=== PATIENT | male | born 1955 | race Caucasian/White ===

== ENCOUNTER 2018-06-27 13:07 | Emergency (ER) | payer BC, OTHER ==
[2018-06-27] MEDS ORDERED: LEVALBUTEROL 1.25 MG/3 ML NEB ONE (14:01)
--- NOTE | 2018-06-27 15:29 | RAD REPORT ---
EXAM DESCRIPTION: RAD - Chest Pa And Lat (2 Views) - 06/27/2018 2:39 pm CLINICAL HISTORY: cough, wheezing Chest pain. COMPARISON: ABDOMEN 1 VIEW KUB dated 04/30/2015; CHEST PA AND LAT 2 VIEW dated 04/30/2015; CHEST SINGL E VIEW dated 06/15/2013; ABDOMEN 1 VIEW KUB dated 09/28/2012 FINDINGS: Mildly prominent interstitial lung markings noted, which can be seen in bronchitis or asth ma. No focal consolidation typical of pneumonia. The heart is normal in size. No displaced fractures.
--- NOTE | 2018-06-27 16:08 | ER ---
Nurse's Notes [facility] Name: Berhane Prado Age: 63 yrs Sex: Male : 1955 Arrival Date: 06/27/2018 Time: 13:16 Bed 6 Private MD: Diagnosis: Acute bronchitis Presentation: 06/27 13:37 Presenting complaint: Patient states: Cough, congestion, sore throat, and body aches, ph denies N/V/D, states, " I just wanted to get checked put because I've had pneumonia in the past.". Transition of care: patient was not received from another setting of care. Onset of symptoms was June 27, 2018. Risk Assessment: Do you want to hurt yourself or someone else? Patient reports no desire to harm self or others. Initial Sepsis Screen: Does the patient meet any 2 criteria? No. Patient's initial sepsis screen is negative. Does the patient have a suspected source of infection? No. Patient's initial sepsis screen is negative. Care prior to arrival: None. 13:37 Method Of Arrival: Ambulatory ph 13:37 Acuity: JOHN 4 ph Triage Assessment: 19:43 General: Appears in no apparent distress. comfortable, Behavior is calm, cooperative, ch appropriate for age. Respiratory: Reports cough that is Airway is patent Respiratory effort is even, unlabored. Historical: - Allergies: 13:40 No Known Allergies; ph - Home Meds: 13:40 valsartan oral oral [Active]; Lipitor Oral [Active]; Allopurinol Oral [Active]; ph - PMHx: 13:40 Hypertension; Hyperlipidemia; Gout; ph - PSHx: 13:40 lung surgery; ph - Immunization history:: Adult Immunizations unknown. - Social history:: Smoking status: Patient/guardian denies using tobacco. - Ebola Screening: : No symptoms or risks identified at this time. Screenin:00 Abuse screen: Denies threats or abuse. Denies injuries from another. Nutritional ch screening: No deficits noted. Tuberculosis screening: No symptoms or risk factors identified. Fall Risk None identified. Assessment: 16:00 Pain: Denies pain. Neuro: No deficits noted. Cardiovascular: Heart tones S1 S2 ch Capillary refill < 3 seconds in bilateral fingers toes Clubbing of nail beds is absent Patient's skin is warm and dry. 16:00 Respiratory: Reports cough that is productive, Airway is patent Respiratory effort is ch even, unlabored, Breath sounds with wheezes bilaterally. GI: No signs and/or symptoms were reported involving the gastrointestinal system. Abdomen is flat. : No signs and/or symptoms were reported regarding the genitourinary system. EENT: Nares with drainage noted Reports nasal congestion nasal discharge. Derm: Skin is intact, Skin is pink, warm \\T\\ dry. Musculoskeletal: No signs and/or symptoms reported regarding the musculoskeletal system. Vital Signs: 13:38 BP 131 / 105; Pulse 90; Resp 20; Temp 98.4; Pulse Ox 98% on R/A; Weight 88.9 kg; Height ph 5 ft. 5 in. (165.10 cm); 14:30 BP 125 / 89; Pulse 94; Resp 19; Pulse Ox 96% on R/A; dh3 15:30 BP 131 / 94; Pulse 90; Resp 18; Pulse Ox 100% on R/A; dh3 13:38 Body Mass Index 32.62 (88.90 kg, 165.10 cm) ph ED Course: 13:16 Patient arrived in ED. mr 13:29 Zach Dick PA is PHCP. jmm 13:29 Burton Blake MD is Attending Physician. jm 13:38 Triage completed. ph 13:40 Poonam Moeller, CHRISTINA is Primary Nurse. ch 13:40 Arm band placed on Patient placed in an exam room. ph 14:37 Chest Pa And Lat (2 Views) XRAY In Process Unspecified. EDMS 16:00 No apparent distress. Resting quietly. ch 16:00 Patient has correct armband on for positive identification. Bed in low position. Call light in reach. Side rails up X 1. Pulse ox on. NIBP on. 16:00 No provider procedures requiring assistance completed. Patient did not have IV access ch during this emergency room visit. Administered Medications: 14:00 Drug: Xopenex (3) 1.25 mg Route: Inhalation; 14:57 Follow up: Response: No adverse reaction; Other; Other, pt states he feels a little ch better. 16:00 Drug: Dexamethasone 10 mg Route: IM; Site: right ventrogluteal; 16:20 Follow up: Response: No adverse reaction ch Outcome: 16:00 Discharged to home ambulatory, with family. 16:00 Condition: improved 16:00 Discharge instructions given to patient, family, Instructed on discharge instructions, follow up and referral plans. medication usage, Demonstrated understanding of instructions, follow-up care, medications, Prescriptions given X 2. 16:07 Discharge ordered by MD. marshall 17:00 Patient left the ED. Signatures: Dispatcher [employer] EDPoonam Moon RN RN Zach Dick PA PA jmm Rivera, Mary mr Hall, Patricia RN RN Flower Bustillos [facility] Corrections: (The following items were deleted from the chart) 15:59 15:57 BP 131 / 94; Pulse 90bpm; Resp 18bpm; Pulse Ox 100% RA; 3 3
--- NOTE | 2018-06-27 16:08 | EDPHYS ---
Physician Documentation [facility] Name: Berhane Prado Age: 63 yrs Sex: Male : 1955 Arrival Date: 06/27/2018 Time: 13:16 Bed 6 Private MD: ED Physician Burton Blake HPI: 06/27 13:37 This 63 yrs old Male presents to ER via Ambulatory with complaints of jmm Congestion, Cough. 13:37 The patient or guardian reports cough, described as moderate. Onset: The jmm symptoms/episode began/occurred gradually, 1 week(s) ago. Associated signs and symptoms: Pertinent positives:. This is a 63 year old male with a history of htn, hlp that presents to the ED with complaints of cough, wheezing, congestion, sore throat beginning approx 1 week ago. . Historical: - Allergies: 13:40 No Known Allergies; ph - Home Meds: 13:40 valsartan oral oral [Active]; Lipitor Oral [Active]; Allopurinol Oral [Active]; ph - PMHx: 13:40 Hypertension; Hyperlipidemia; Gout; ph - PSHx: 13:40 lung surgery; ph - Immunization history:: Adult Immunizations unknown. - Social history:: Smoking status: Patient/guardian denies using tobacco. - Ebola Screening: : No symptoms or risks identified at this time. ROS: 13:40 Constitutional: Positive for body aches, chills. jmm 13:40 ENT: Positive for sinus congestion, sore throat. 13:40 Respiratory: Positive for cough, wheezing. 13:40 All other systems are negative. Exam: 13:40 Constitutional: This is a well developed, well nourished patient who is awake, alert, jmm and in no acute distress. Head/Face: atraumatic. Eyes: EOMI, no conjunctival erythema appreciated ENT: Moist Mucus Membranes Neck: Trachea midline, Supple Chest/axilla: Normal chest wall appearance and motion. 13:40 Cardiovascular: Rate: normal, Rhythm: regular. 13:40 Respiratory: the patient does not display signs of respiratory distress, Respirations: normal, Breath sounds: wheezing: that is mild, is scattered. 13:40 Abdomen/GI: Inspection: abdomen appears normal, Bowel sounds: normal, Palpation: abdomen is soft and non-tender, in all quadrants. 13:40 Back: ROM is normal. 13:40 Musculoskeletal/extremity: ROM: intact in all extremities. 13:40 Skin: Appearance: Color: normal in color. 13:40 Neuro: Orientation: is normal, Mentation: is normal, Memory: is normal. 13:40 Psych: Behavior/mood is pleasant, cooperative. Vital Signs: 13:38 BP 131 / 105; Pulse 90; Resp 20; Temp 98.4; Pulse Ox 98% on R/A; Weight 88.9 kg; Height ph 5 ft. 5 in. (165.10 cm); 14:30 BP 125 / 89; Pulse 94; Resp 19; Pulse Ox 96% on R/A; dh3 15:30 BP 131 / 94; Pulse 90; Resp 18; Pulse Ox 100% on R/A; dh3 13:38 Body Mass Index 32.62 (88.90 kg, 165.10 cm) ph MDM: 13:[address] [facility] 16:06 Data reviewed: vital signs, nurses notes. Counseling: I had a detailed discussion with [facility] the patient and/or guardian regarding: the historical points, exam findings, and any diagnostic results supporting the discharge/admit diagnosis, radiology results, the need for outpatient follow up, to return to the emergency department if symptoms worsen or persist or if there are any questions or concerns that arise at home. ED course: Patient is alert and non toxic in appearance in the ED. No signs of resp distress is apprecaited. Patient advised to follow up with pcp for reevaluation. Patient is otherwise given strict return precautions. Patient understood and agrees with the plan of care. . 06/27 13:42 Order name: Flu; Complete Time: 14:52 [facility] 06/27 13:42 Order name: Chest Pa And Lat (2 Views) XRAY; Complete Time: 15:32 [facility] Administered Medications: 14:00 Drug: Xopenex (3) 1.25 mg Route: Inhalation; ch 14:57 Follow up: Response: No adverse reaction; Other; Other, pt states he feels a little ch better. 16:00 Drug: Dexamethasone 10 mg Route: IM; Site: right ventrogluteal; ch 16:20 Follow up: Response: No adverse reaction ch Disposition: 06/28 09:47 Co-signature as Attending Physician, Burton Blake MD I agree with the assessment and warren plan of care. Disposition: 06/27/18 16:07 Discharged to Home. Impression: Acute bronchitis. - Condition is Stable. - Discharge Instructions: Acute Bronchitis, Adult. - Prescriptions for Zithromax Z- Dominguez 250 mg Oral Tablet - take 1 tablet by ORAL route as directed for 5 days Day 1 - take two (2) tablets one time. Day 2, 3, 4 , 5 take one (1) tablet once daily.; 6 tablet. Albuterol Sulfate 90 mcg/actuation - inhale 1-2 puff by INHALATION route every 4-6 hours; 1 Inhaler. - Medication Reconciliation Form, Thank You Letter, Antibiotic Education, Prescription Opioid Use form. - Follow up: Private Physician; When: 2 - 3 days; Reason: Recheck today's complaints, Continuance of care, Re-evaluation by your physician. Signatures: Dispatcher [employer] Poonam Bedoya, CHRISTINA RN Burton Alexandre MD MD cha Mickail, Joel, PA PA jmm Hall, Patricia, RN RN ph Corrections: (The following items were deleted from the chart) 06/27 17:00 16:07 06/27/2018 16:07 Discharged to Home. Impression: Acute bronchitis. Condition is ch Stable. Forms are Medication Reconciliation Form, Thank You Letter, Antibiotic Education, Prescription Opioid Use. Follow up: Private Physician; When: 2 - 3 days; Reason: Recheck today's complaints, Continuance of care, Re-evaluation by your physician. joanna
[2018-06-27] MEDS ORDERED: DEXAMETHASONE 4 MG/ML VIAL ONE ×2 (16:20→16:24)
[2018-06-27 17:10] VITALS: TEMP 98.4
[2018-06-27 17:12] VITALS: BP 131/94; O2SAT 100
== END 2018-06-27 17:00 | disposition home or self-care (01) ==
LOC: ER 13:07
DX: J20.9 Acute bronchitis, unspecified (principal); I10 Essential (primary) hypertension; E78.5 Hyperlipidemia, unspecified
CPT/HCPCS: 71046; 87804; 96372; 99284

== ENCOUNTER 2019-04-16 07:35 | Emergency (ER) | payer BC ==
--- NOTE | 2019-04-16 08:29 | ER ---
Nurse's Notes [facility] Name: Berhane Prado Age: 63 yrs Sex: Male : 1955 Arrival Date: 04/16/2019 Time: 07:37 Bed X-Ray Private MD: Gustavo Wilson T Diagnosis: Bronchitis, not specified as acute or chronic;Acute upper respiratory infection, unspecified Presentation: 04/16 07:43 Presenting complaint: Patient states: cough and congestion that began 2 days ago. ss Unknown fever. Transition of care: patient was not received from another setting of care. Onset of symptoms was April 14, 2019. Risk Assessment: Do you want to hurt yourself or someone else? Patient reports no desire to harm self or others. Initial Sepsis Screen: Does the patient meet any 2 criteria? No. Patient's initial sepsis screen is negative. Does the patient have a suspected source of infection? Yes: Productive cough/pneumonia. Care prior to arrival: None. 07:43 Method Of Arrival: Ambulatory ss 07:43 Acuity: JOHN 4 ss Triage Assessment: 08:30 General: Appears in no apparent distress. uncomfortable, Behavior is calm, cooperative. ae4 Historical: - Allergies: 07:46 No Known Allergies; ss - Home Meds: 07:46 "supposed to be taking BP and cholesterol medications" [Active]; ss - PMHx: 07:46 Gout; Hyperlipidemia; Hypertension; ss - PSHx: 07:46 lung surgery; ss - Immunization history:: Flu vaccine is not up to date. - Social history:: Smoking status: Patient/guardian denies using tobacco. - Ebola Screening: : Patient denies exposure to infectious person Patient denies travel to an Ebola-affected area in the 21 days before illness onset. - Family history:: not pertinent. Screenin:32 Abuse screen: Denies threats or abuse. Nutritional screening: No deficits noted. ae4 Tuberculosis screening: No symptoms or risk factors identified. Fall Risk None identified. Assessment: 08:30 General: Appears in no apparent distress. uncomfortable, Behavior is calm, cooperative. ae4 Pain: Complains of pain in Patient reports body aches. and pain to chest with cough. Neuro: Level of Consciousness is awake, alert, obeys commands, Oriented to person, place, time, situation, Appropriate for age. Cardiovascular: Patient's skin is warm and dry. Respiratory: Airway is patent Respiratory effort is even, unlabored. 08:30 Respiratory: Reports shortness of breath cough that is non-productive, dry, pain with ae4 cough Breath sounds are diminished bilaterally. Breath sounds with wheezes bilaterally. GI: No signs and/or symptoms were reported involving the gastrointestinal system. : No signs and/or symptoms were reported regarding the genitourinary system. EENT: No signs and/or symptoms were reported regarding the EENT system. Derm: Skin is pale. Musculoskeletal: No signs and/or symptoms reported regarding the musculoskeletal system. 09:10 Reassessment: Patient appears in no apparent distress at this time. No changes from ae4 previously documented assessment. Vital Signs: 07:46 BP 161 / 109; Pulse 88; Resp 16; Temp 98.3(TE); Pulse Ox 97% on R/A; Weight 87.09 kg; ss Height 5 ft. 5 in. (165.10 cm); Pain 4/10; 09:15 BP 160 / 94; Pulse 82; Resp 18; Pulse Ox 97% on R/A; ae4 07:46 Body Mass Index 31.95 (87.09 kg, 165.10 cm) ED Course: 07:37 Patient arrived in ED. ag5 07:37 Gustavo Wilson MD is Private Physician. ag5 07:43 Burton Blake MD is Attending Physician. warren 07:44 Triage completed. ss 07:46 Arm band placed on left wrist. ss 07:50 Russell Mg, CHRISTINA is Primary Nurse. ae4 08:17 Chest Pa And Lat (2 Views) XRAY In Process Unspecified. EDMS 08:28 Gustavo Wilson MD is Referral Physician. warren 08:28 Harman Tate MD is Referral Physician. warren 08:30 Bed in low position. Call light in reach. Side rails up X 1. Pulse ox on. NIBP on. ae4 08:30 No provider procedures requiring assistance completed. Patient did not have IV access ae4 during this emergency room visit. Administered Medications: 08:30 Drug: Xopenex 2.5 mg Route: Inhalation; ae4 09:36 Follow up: Response: Other; SOB decreased. ae4 08:30 Drug: AtroVENT Aerosol 0.5 mg Route: Inhalation; ae4 09:35 Follow up: Response: Other; SOB decreased. ae4 09:15 Drug: Rocephin (cefTRIAXone) 1 grams Route: IM; Site: left gluteus; rb1 09:35 Follow up: Response: No adverse reaction ae4 09:15 Drug: Augmentin 875 mg Route: PO; rb1 09:35 Follow up: Response: Medication administered at discharge. ae4 Outcome: 08:28 Discharge ordered by MD. kelley 08:30 Discharged to home ambulatory. ae4 08:30 Condition: stable 08:30 Discharge instructions given to patient, significant other, Instructed on discharge instructions, follow up and referral plans. Demonstrated understanding of instructions, Prescriptions given X 2. 09:30 Patient left the ED. ae4 Signatures: Dispatcher [employer] EDMS Burton Blake MD MD cha Smirch, Shelby, RN RN Lelsy Simental RN RN rb1 Alina Gottlieb Russell Denise RN RN ae4
--- NOTE | 2019-04-16 08:29 | EDPHYS ---
Physician Documentation [facility] Name: Berhane Prado Age: 63 yrs Sex: Male : 1955 Arrival Date: 04/16/2019 Time: 07:37 Bed X-Ray Private MD: Gustavo Wilson T ED Physician Burton Blake HPI: 04/16 08:10 This 63 yrs old Male presents to ER via Ambulatory with complaints of Flu warren Symptoms. 08:10 The patient or guardian reports airway noise, cough. Onset: The symptoms/episode warren began/occurred 3 day(s) ago. Modifying factors: The symptoms are alleviated by nothing. the symptoms are aggravated by cold environment. Severity of symptoms: At their worst the symptoms were mild, moderate, in the emergency department the symptoms have improved, mildly. Associated signs and symptoms: The patient has no apparent associated signs or symptoms. Modifying factors: The symptoms are alleviated by nothing, the symptoms are aggravated by nothing. Severity of symptoms: At their worst the symptoms were mild moderate in the emergency department the symptoms are unchanged. Historical: - Allergies: 07:46 No Known Allergies; ss - Home Meds: 07:46 "supposed to be taking BP and cholesterol medications" [Active]; ss - PMHx: 07:46 Gout; Hyperlipidemia; Hypertension; ss - PSHx: 07:46 lung surgery; ss - Immunization history:: Flu vaccine is not up to date. - Social history:: Smoking status: Patient/guardian denies using tobacco. - Ebola Screening: : Patient denies exposure to infectious person Patient denies travel to an Ebola-affected area in the 21 days before illness onset. - Family history:: not pertinent. ROS: 08:10 Constitutional: Negative for fever, chills, and weight loss, Eyes: Negative for injury, warren pain, redness, and discharge, ENT: Negative for injury, pain, and discharge, Neck: Negative for injury, pain, and swelling, Cardiovascular: Negative for chest pain, palpitations, and edema, Abdomen/GI: Negative for abdominal pain, nausea, vomiting, diarrhea, and constipation, Back: Negative for injury and pain, : Negative for injury, bleeding, discharge, and swelling, MS/Extremity: Negative for injury and deformity, Skin: Negative for injury, rash, and discoloration, Neuro: Negative for headache, weakness, numbness, tingling, and seizure, Psych: Negative for depression, anxiety, suicide ideation, homicidal ideation, and hallucinations, Allergy/Immunology: Negative for hives, rash, and allergies, Endocrine: Negative for neck swelling, polydipsia, polyuria, polyphagia, and marked weight changes, Hematologic/Lymphatic: Negative for swollen nodes, abnormal bleeding, and unusual bruising. 08:10 Respiratory: Positive for cough, "sounds productive". Exam: 08:10 Constitutional: This is a well developed, well nourished patient who is awake, alert, warren and in no acute distress. Head/Face: Normocephalic, atraumatic. Eyes: Pupils equal round and reactive to light, extra-ocular motions intact. Lids and lashes normal. Conjunctiva and sclera are non-icteric and not injected. Cornea within normal limits. Periorbital areas with no swelling, redness, or edema. ENT: Nares patent. No nasal discharge, no septal abnormalities noted. Tympanic membranes are normal and external auditory canals are clear. Oropharynx with no redness, swelling, or masses, exudates, or evidence of obstruction, uvula midline. Mucous membranes moist. Neck: Trachea midline, no thyromegaly or masses palpated, and no cervical lymphadenopathy. Supple, full range of motion without nuchal rigidity, or vertebral point tenderness. No Meningismus. Chest/axilla: Normal chest wall appearance and motion. Nontender with no deformity. No lesions are appreciated. Cardiovascular: Regular rate and rhythm with a normal S1 and S2. No gallops, murmurs, or rubs. Normal PMI, no JVD. No pulse deficits. Abdomen/GI: Soft, non-tender, with normal bowel sounds. No distension or tympany. No guarding or rebound. No evidence of tenderness throughout. Back: No spinal tenderness. No costovertebral tenderness. Full range of motion. Male : Normal genitalia with no discharge or lesions. Skin: Warm, dry with normal turgor. Normal color with no rashes, no lesions, and no evidence of cellulitis. MS/ Extremity: Pulses equal, no cyanosis. Neurovascular intact. Full, normal range of motion. Neuro: Awake and alert, GCS 15, oriented to person, place, time, and situation. Cranial nerves II-XII grossly intact. Motor strength 5/5 in all extremities. Sensory grossly intact. Cerebellar exam normal. Normal gait. Psych: Awake, alert, with orientation to person, place and time. Behavior, mood, and affect are within normal limits. 08:10 Respiratory: the patient does not display signs of respiratory distress, Respirations: normal, Breath sounds: bronchial sounds, rhonchi, that are mild. Vital Signs: 07:46 BP 161 / 109; Pulse 88; Resp 16; Temp 98.3(TE); Pulse Ox 97% on R/A; Weight 87.09 kg; ss Height 5 ft. 5 in. (165.10 cm); Pain 4/10; 09:15 BP 160 / 94; Pulse 82; Resp 18; Pulse Ox 97% on R/A; ae4 07:46 Body Mass Index 31.95 (87.09 kg, 165.10 cm) ss MDM: 07:48 Patient medically screened. [facility] 08:13 Data reviewed: vital signs, nurses notes, lab test result(s), radiologic studies. [facility] 04/16 07:50 Order name: Flu ae 04/16 07:51 Order name: Influenza Screen (A ; Complete Time: 09:21 EDAK 04/16 08:07 Order name: Chest Pa And Lat (2 Views) XRAY [facility] 04/16 08:18 Order name: INCENTIVE SPIROMETRY warren Administered Medications: 08:30 Drug: Xopenex 2.5 mg Route: Inhalation; ae4 09:36 Follow up: Response: Other; SOB decreased. ae4 08:30 Drug: AtroVENT Aerosol 0.5 mg Route: Inhalation; ae4 09:35 Follow up: Response: Other; SOB decreased. ae4 09:15 Drug: Rocephin (cefTRIAXone) 1 grams Route: IM; Site: left gluteus; rb1 09:35 Follow up: Response: No adverse reaction ae4 09:15 Drug: Augmentin 875 mg Route: PO; rb1 09:35 Follow up: Response: Medication administered at discharge. ae4 Disposition: 04/16/19 08:28 Discharged to Home. Impression: Bronchitis, not specified as acute or chronic, Acute upper respiratory infection, unspecified. - Condition is Fair. - Discharge Instructions: Acute Bronchitis, Adult, Hypertension, Upper Respiratory Infection, Adult, Cool Mist Vaporizer, Hypertension, [id number], Cough, Adult. - Prescriptions for Augmentin 875- 125 mg Oral Tablet - take 1 tablet by ORAL route every 12 hours for 10 days; 20 tablet. Albuterol Sulfate 90 mcg/actuation - inhale 1-2 puff by INHALATION route every 4-6 hours; 1 Inhaler. - Medication Reconciliation Form, Thank You Letter, Antibiotic Education, Prescription Opioid Use form. - Follow up: Gustavo Wilson; When: 2 - 3 days; Reason: Recheck today's complaints, Continuance of care, Re-evaluation by your physician. Follow up: Harman Tate; When: 2 - 3 days; Reason: Recheck today's complaints, Re-evaluation by your physician. - Problem is new. - Symptoms have improved. Signatures: Dispatcher [employer] EDMS Burton Blake MD MD cha Smirch, Shelby, RN RN Lesly Simental, CHRISTINA RN Russell William RN RN ae4 Corrections: (The following items were deleted from the chart) 09:30 08:28 04/16/2019 08:28 Discharged to Home. Impression: Bronchitis, not specified as ae4 acute or chronic; Acute upper respiratory infection, unspecified. Condition is Fair. Discharge Instructions: Acute Bronchitis, Adult, Upper Respiratory Infection, Adult, Cool Mist Vaporizer, Cough, Adult, Hypertension, Hypertension, [id number]. Prescriptions for Augmentin 875-125 mg Oral Tablet - take 1 tablet by ORAL route every 12 hours for 10 days; 20 tablet, Albuterol Sulfate 90 mcg/actuation - inhale 1-2 puff by INHALATION route every 4-6 hours; 1 Inhaler. and Forms are Medication Reconciliation Form, Thank You Letter, Antibiotic Education, Prescription Opioid Use. Follow up: Gustavo Wilson; When: 2 - 3 days; Reason: Recheck today's complaints, Continuance of care, Re-evaluation by your physician. Follow up: Harman Tate; When: 2 - 3 days; Reason: Recheck today's complaints, Re-evaluation by your physician. Problem is new. Symptoms have improved. warren
[2019-04-16] MEDS ORDERED: LEVALBUTEROL 1.25 MG/3 ML NEB ONE (08:35)
[2019-04-16] MEDS ORDERED: AMOX/K CLAV 875 MG TAB ONE (08:35)
[2019-04-16] MEDS ORDERED: IPRATROPIUM BROM 0.5MG/2.5ML ONE (08:35)
[2019-04-16] MEDS ORDERED: CEFTRIAXONE 1000 MG/VIAL ONE (08:35)
[2019-04-16] MEDS ORDERED: WATER FOR INJ,STERILE 10 ML ONE (08:36)
[2019-04-16 09:34] VITALS: BP 161/109; TEMP 98.3; O2SAT 97
--- NOTE | 2019-04-16 10:11 | RAD REPORT ---
EXAM DESCRIPTION: RAD - Chest Pa And Lat (2 Views) - 04/16/2019 8:21 am CLINICAL HISTORY: Cough;Congestion COMPARISON: June 27 TECHNIQUE: PA and lateral views of the chest were obtained. FINDINGS: The lungs are clear of acute infiltrate. No failure, volume overload or mass lesion. Lung parenchyma not significantly different from comparison. Heart size is normal and central vasculatur e is within normal limits. No pleural effusion or pneumothorax seen. No acute bony finding noted. No aortic abnormality. IMPRESSION: No acute cardiopulmonary process. No significant change comparison.
== END 2019-04-16 09:30 | disposition home or self-care (01) ==
LOC: ER 07:35
DX: J40 Bronchitis, not specified as acute or chronic (principal); I10 Essential (primary) hypertension; E78.00 Pure hypercholesterolemia, unspecified
CPT/HCPCS: 71046; 87804; 96372; 99284

== ENCOUNTER 2021-04-25 12:57 | Emergency (ER) | payer BC ==
--- OUTSIDE RECORDS SUMMARY | 2021-04-25 13:00 | XMS REPORT | Continuity of Care Document ---
:1955 Author Organization [facility] t Address [address] [place] [address] Care Team Providers Name Role Phone BILLYCHIDIADELFO Primary Care Physician Unavailable LUIS F Attending Clinician Unavailable Provider, [facility] Attending Clinician Unavailable Luis F GARCIA Attending Clinician Doctor Unassigned, Name Attending Clinician Unavailable Payers Payer Name Policy Type Policy Number Effective Date Expiration Date S ource Problems Condition Condition Condition Status Onset Resolution Last Treating Co mments Source Name Details Category Date Date Treatment Clinician Date Obesity Obesity Disease Active 2017- Univers (BMI (BMI 6-04 ity of 30-39.9) 30-39.9) 00:00: [place] 00 [facility] Allergies, Adverse Reactions, Alerts Allergy Allergy Status Severity Reaction(s) Onset Inactive Treating Comm ents Source Name Type Date Date Clinician NO KNOWN Drug Active Univers ALLERGIE Class [facility]y of [facility] Social History Social Habit Start Date Stop Date Quantity Comments Source Exposure to Yes [facility] SARS-CoV-2 (event) Medica l Branch Tobacco use and 2020-12-13 2020-12-13 Never used [facility] exposure 00:00:00 00:00:00 [facility] Sex Ass[birth year] [facility] 00:00:00 00:00:00 [facility] Smoking Status Start Date Stop Date Source Never smoker [facility] Medications Ordered Filled Start Stop Current Ordering Indication Dosage Frequency Signature Comments Components Source Medication Medication Date Date Medication? Clinician (SIG) Name Name benzonatate 2020-04 Yes [id number] 200mg Take 2 [facility] 100 mg 2-24 capsules [place] Branch daily as needed for Cough. bromphenira 2020-04 Yes [id number] 5mL Take 5 mL Univers mine-pseudo 2-24 by mouth 4 it [place] of ephedrine-D [place] ([place] 00 times Medical DM) 2-30-10 daily as Bran ch mg/5 mL needed for syrup Congestion /Allergies . azelastine 2020-04 Yes [id number] 1{spray Use 1 Univers 137 mcg 2-24 } [place] in ity of (0.1 %) 00:00: each [place] nasal spray 00 nostril 2 Med ical (two) Branch times daily. Use in each nostril as directed fluticasone 2020-04 Yes [id number] 1{spray Use 1 Univers propionate 2-24 } [place] in ity o f 50 00:00: each [place] mcg/actuati 00 nostril Medic al on nasal daily. Branch spray cetirizine 2020-04 Yes [id number] 10mg Take 1 Univers (ZYRTEC) 10 2-24 tablet by ity of mg tablet 00:00: mouth [place] 00 daily. Medical Branch benzonatate 2020-04 Yes [id number] 200mg Take 2 [facility] 100 mg 2-24 capsules [place] of capsule [place] (two[place] times Branch daily as needed for Cough. bromphenira 2020-04 Yes [id number] 5mL Take 5 mL [facility] mine-pseudo 2-24 by mouth 4 it y of ephedrine-D 00:00[place] ([place] 00 times Medical DM) 2-30-10 daily as Bran ch mg/5 mL needed for syrup Congestion /Allergies . azelastine 2020-04 Yes [id number] 1{spray Use 1 Univers 137 mcg 2-24 } [place] in ity of (0.1 %) 00:00: each [place] nasal spray 00 nostril 2 Med ical (two) Branch times daily. Use in each nostril as directed fluticasone 2020-04 Yes [id number] 1{spray Use 1 Univers propionate 2-24 } [place] in ity o f 50 00:00: each [place] mcg/actuati 00 nostril Medic al on nasal daily. Branch spray cetirizine 2020-04 Yes [id number] 10mg Take 1 Univers (ZYRTEC) 10 2-24 tablet by ity of mg tablet 00:00: mouth [place] 00 daily. Medical Branch benzonatate 2020-04 Yes [id number] 200mg Take 2 [facility] 100 mg 2-24 capsules [place] of capsule 00:00[place] (two[place] times Branch daily as needed for Cough. bromphenira 2020-04 Yes [id number] 5mL Take 5 mL [facility] mine-pseudo 2-24 by mouth 4 it y of ephedrine-D 00:00: (four[place] (BROMF[place] 00 times Medical DM) 2-30-10 daily as Bran ch mg/5 mL needed for syrup Congestion /Allergies . azelastine 2020-04 Yes [id number] 1{spray Use 1 Univers 137 mcg 2-24 } [place] in ity of (0.1 %) 00:00: each [place] nasal spray 00 nostril 2 Med ical (two) Branch times daily. Use in each nostril as directed fluticasone 2020-04 Yes [id number] 1{spray Use 1 [facility] propionate 2-24 } [place] in ity o f 50 00:00: each [place] mcg/actuati 00 nostril Medic al on nasal daily. Branch spray cetirizine 2020-04 Yes [id number] 10mg Take 1 Univers (ZYRTEC) 10 2-24 tablet by ity of mg tablet 00:00: mouth [place] 00 daily. Medical Branch mupirocin 2 2020-0 Yes [id number] Apply to Univers % ointment 4-13 area(s) 3 ity of 00:00: (three) [place] 00 times Medical daily. Branch mupirocin 2 2020-0 Yes [id number] Apply to Univers % ointment 4-13 area(s) 3 ity of 00:00: (three) [place] 00 times Medical daily. Branch mupirocin 2 2019-0 Yes [id number] Apply to Univers % ointment 4-13 area(s) 3 ity of 00:00: (three) [place] 00 times Medical daily. Branch traMADOL 2017-0 Yes 50mg Take 1 Univers (ULTRAM) 50 6-04 tablet by ity of mg tablet 00:00: mouth [place] 00 every 6 Medical (six) Branch hours as needed for Pain (scale 4-6). traMADOL Yes 50mg Take 1 Univers (ULTRAM) 50 6-04 tablet by ity of mg tablet 00:00: mouth [place] 00 every 6 Medical (six) Branch hours as needed for Pain (scale 4-6). traMADOL Yes 50mg Take 1 Univers (ULTRAM) 50 6-04 tablet by ity of mg tablet 00:00: mouth [place] 00 every 6 Medical (six) Branch hours as needed for Pain (scale 4-6). ketorolac 2015-04 Yes 10mg Take 1 Univer s (TORADOL) 0-31 tablet by ity o f 10 mg 00:00: mouth [place] tablet 00 every 6 Medical (six) Branch hours as needed for Pain (scale 4-6). tamsulosin 2015-04 Yes .4mg Take 1 Unive rs (FLOMAX) 0-31 capsule by ity o f 0.4 mg 24 00:00: mouth [place] capsule 00 bedtime. Medic al Branch ondansetron 2015-04 Yes 4mg Take 1 Univ ers (ZOFRAN, 0-31 tablet by ity of HYDROCHLORI 00:00: mouth [place],) 4 mg 00 every 8 Medical tablet (eight) Branch hours. ketorolac 2015-04 Yes 10mg Take 1 Univer s (TORADOL) 0-31 tablet by ity o f 10 mg 00:00: mouth [place] tablet 00 every 6 Medical (six) Branch hours as needed for Pain (scale 4-6). tamsulosin 2015-04 Yes .4mg Take 1 Unive rs (FLOMAX) 0-31 capsule by ity o f 0.4 mg 24 00:00: mouth [place] capsule 00 bedtime. Medic al Branch ondansetron 2015-04 Yes 4mg Take 1 Univ ers (ZOFRAN, 0-31 tablet by ity of HYDROCHLORI 00:00: mouth [place],) 4 mg 00 every 8 Medical tablet (eight) Branch hours. ketorolac 2015-04 Yes 10mg Take 1 Univer s (TORADOL) 0-31 tablet by ity o f 10 mg 00:00: mouth [place] tablet 00 every 6 Medical (six) Branch hours as needed for Pain (scale 4-6). tamsulosin 2015-04 Yes .4mg Take 1 Unive rs (FLOMAX) 0-31 capsule by ity o f 0.4 mg 24 00:00: mouth [place] capsule 00 bedtime. Medic al Branch ondansetron 2015-04 Yes 4mg Take 1 Univ ers (ZOFRAN, 0-31 tablet by ity of HYDROCHLORI 00:00: mouth [place],) 4 mg 00 every 8 Medical tablet (eight) Branch hours. cyclobenzap 2015-04 Yes 10mg Take 1 Univ ers rine 0-23 tablet by ity of (FLEXERIL) 00:00: mouth 3 [place] 10 mg 00 (three) Medical tablet times Branch daily. ibuprofen 2015-04 Yes 600mg Take 1 Unive rs (MOTRIN) 0-23 tablet by ity of 600 mg 00:00: mouth [place] tablet 00 every 6 Medical (six) Branch hours as needed for Pain (scale 4-6). cyclobenzap 2015-04 Yes 10mg Take 1 Univ ers rine 0-23 tablet by ity of (FLEXERIL) 00:00: mouth [place] 10 mg 00 (three) Medical tablet times Branch daily. ibuprofen 2015-04 Yes 600mg Take 1 Unive rs (MOTRIN) 0-23 tablet by ity of 600 mg 00:00: mouth [place] tablet 00 every 6 Medical (six) Branch hours as needed for Pain (scale 4-6). cyclobenzap 2015-04 Yes 10mg Take 1 Univ ers rine 0-23 tablet by ity of (FLEXERIL) 00:00: mouth [place] 10 mg 00 (three) Medical tablet times Branch daily. ibuprofen 2015-04 Yes 600mg Take 1 Unive rs (MOTRIN) 0-23 tablet by ity of 600 mg 00:00: mouth [place] tablet 00 every 6 Medical (six) Branch hours as needed for Pain (scale 4-6). Procedures Procedure Date / Time Performed Performing Clinician [facility] ASSIGNMENT OF BENEFITS 2021-04-15 22:34:31 Doctor Unassigned, No University [facility] Name Medical Branch Encounters Start End Encounter Admission Attending Care Care Encounter Source Date/Time Date/Time Type Type Clinicians Facility Department ID 2021-04-15 2021-04-15 [id number] Univers 17:00:00 17:00:00 JEROD [id number] ity [facility] 2021-04-15 2021-04-15 Urgent Provider, [facility] [id number] Univers 17:00:00 17:00:00 Care Jerod Patterson [facility] [id number] ity of [place] [id number] Reji as ALEXANDRO?BLEA [phone] [address] MEDICAL OFFICE BUILDING 2021-04-15 2021-04-15 [facility] [id number] Univers 17:00:00 16:55:[facility] 2021-04-15 2021-04-15 Orders Doctor SANDERS [id number] Univers 00:00:00 00:00:00 Only Unassigned, DEVORA [id number] ity of [place] [facility] [id number] Reji as [phone] [address] 2021-04-12 2021-04-12 [facility] [id number] Univers 14:00:00 14:10:43 [facility] [place] [facility] 2021-04-12 2021-04-12 [facility] [id number] Univers 00:00:00 00:00:00 [facility] [id number] it y of [place] [id number] Reji as ALEXANDRO?BLEA [phone] [address] MEDICAL OFFICE BUILDING Results This patient has no known results.
[2021-04-25] MEDS ORDERED: ONDANSETRON 4 MG/2 ML VIAL ONE (14:45)
[2021-04-25 14:53] LABS: Absolute Lymphocytes (CBC) 0.7 K/uL (0.7-4.9); Lymphocytes % 14.1 % (15.3-44.8); MPV 7.4 fL (7.6-11.3); RBC Red Blood Cell Count 5.13 M/uL (4.33-5.43)
[2021-04-25 15:21] LABS: Albumin 3.4 g/dL (3.4-5.0); Bilirubin Direct 0.4 mg/dL (0-0.2); Bilirubin Total 1.2 mg/dL (0.2-1.0); Protein, Total 7.9 g/dL (6.4-8.2)
[2021-04-25] MEDS ORDERED: FAMOTIDINE 20 MG/2 ML VIAL IV ONE (16:39)
[2021-04-25] MEDS ORDERED: NA CHLORIDE 0.9% 1,000 ML ONE (17:23)
--- NOTE | 2021-04-25 17:32 | RAD REPORT ---
EXAM DESCRIPTION: US - Abdomen Exam Limited - 04/25/2021 5:18 pm CLINICAL HISTORY: elevated liver enzymes;Abd pain COMPARISON: ABDOMEN SINGLE VIEW dated 10/30/2012 FINDINGS: No gallstones, sludge or other abnormalities within the gallbladder lumen. There is no wal l thickening or pericholecystic fluid. No common duct stone or biliary tree dilatation identified. Liver is only partially imaged. Increased parenchyma echogenicity is present and may reflect fatty in filtration. IMPRESSION: Normal gallbladder and biliary tree ultrasound.
--- NOTE | 2021-04-25 18:12 | RAD REPORT ---
EXAM DESCRIPTION: CT - Abdomen Pelvis W Contrast - 04/25/2021 5:48 pm CLINICAL HISTORY: ABD PAIN COMPARISON: Chest Single View dated 04/21/2021 TECHNIQUE: Biphasic, helical CT imaging of the abdomen and pelvis was performed following 100 ml non -ionic IV contrast. No oral contrast administered. All CT scans are performed using dose optimization technique as appropriate and may include automated exposure control or mA/KV adjustment according to patient size. FINDINGS: No dense consolidations seen in either lung base. There is thickened interstitium and patc hy areas of alveolar opacification in a peripheral distribution. No pneumothorax or pleural effusion. No cardiomegaly or pericardial effusion. The liver, spleen, and pancreas show no suspicious findings. Gallbladder and biliary tree are also wi thout suspicious finding. No portal vein abnormality. Symmetric renal function is seen with no hydronephrosis or suspicious renal mass. No pyelonephritis o r acute parenchymal process. Small nonobstructing calyx calculi are seen in each kidney under 5 mm in size. Focus of cortical thinning and probable small simple cyst formation 8 mm in size seen in the l ateral upper pole of the right kidney. No perinephric stranding. No adrenal abnormalities. Urinary bl adder is mostly contracted limiting detail. No suspicion for bladder wall thickening, mass or bladder calculus. Prostate gland is mildly prominent. No dilated bowel loops or bowel wall thickening. Appendix is normal. No free air, free fluid or infla mmatory stranding. No hernia, mass or bulky lymphadenopathy. Prominent degenerative changes are seen in the lumbar spine and lower thoracic spine. No acute or pat hologic bone process seen. No acute vascular finding. IMPRESSION: No acute or emergent finding seen in the abdomen or pelvis. Patchy airspace opacities are present in both lung bases with interstitial thickening. Baseline for the lung parenchyma is unknown. Findings are suspicious for infiltrate. COVID-19 pneumonia etiology c annot be excluded and can be correlated with symptoms and testing.
--- NOTE | 2021-04-25 18:27 | ER ---
Nurse's Notes [facility] Name: Berhane Prado Age: 65 yrs Sex: Male : 1955 Arrival Date: 04/25/2021 Time: 13:05 Bed 9 Private MD: Diagnosis: Pneumonia due to SARS-associated coronavirus;Abnormal results of liver function studies;Abdominal pain, unspecified Presentation: 04/25 14:21 Chief complaint: Patient states: Upper ABD pain with nausea x 2 weeks; states loss of vg1 appetite and weight loss for about a week. Took a covid test on 04/21/2021 and results were negative. Coronavirus screen: Vaccine status: Patient reports being unvaccinated. Client denies travel out of the [place] in the last 14 days. Ebola Screen: Patient negative for fever greater than or equal to 101.5 degrees Fahrenheit, and additional compatible Ebola Virus Disease symptoms. Initial Sepsis Screen: Does the patient meet any 2 criteria? No. Patient's initial sepsis screen is negative. Does the patient have a suspected source of infection? No. Patient's initial sepsis screen is negative. Risk Assessment: Do you want to hurt yourself or someone else? Patient reports no desire to harm self or others. Onset of symptoms was May 12, 2020. 14:21 Method Of Arrival: Ambulatory vg1 14:21 Acuity: JOHN 3 vg1 Triage Assessment: 14:25 General: Appears in no apparent distress. comfortable, Behavior is calm, cooperative. vg1 Pain: Complains of pain in right upper quadrant and left upper quadrant Pain currently is 4 out of 10 on a pain scale. GI: Abdomen is flat, non-distended, Reports nausea. Historical: - Allergies: 14:25 No Known Allergies; vg1 - Home Meds: 14:25 Aspirin Oral [Active]; atorvastatin oral [Active]; vg1 - PMHx: 14:25 Hypertension; Hyperlipidemia; Gout; vg1 - Immunization history:: Client reports having NOT received the Covid vaccine. - Social history:: Smoking status: Patient denies any tobacco usage or history of. Screenin:00 Abuse screen: Denies threats or abuse. Denies injuries from another. Nutritional iw screening: No deficits noted. Tuberculosis screening: No symptoms or risk factors identified. Fall Risk None identified. Assessment: 17:00 General: Appears in no apparent distress. Behavior is calm, cooperative. Pain: iw Complains of pain in left upper quadrant and right upper quadrant. Neuro: Level of Consciousness is awake, alert, obeys commands, Oriented to person, place, time, situation, Moves all extremities. Full function. Cardiovascular: Patient's skin is warm and dry. Respiratory: Respiratory effort is even, unlabored, Respiratory pattern is regular, symmetrical. GI: Bowel sounds present X 4 quads. Abd is soft X 4 quads. Derm: Skin is intact, is healthy with good turgor. Musculoskeletal: Range of motion: intact in all extremities. Vital Signs: 14:21 BP 134 / 97; Pulse 85; Resp 18; Temp 97.6; Pulse Ox 97% ; Weight 83.91 kg; Height 5 ft. vg1 5 in. (165.10 cm); Pain 3/10; 14:21 Body Mass Index 30.79 (83.91 kg, 165.10 cm) vg1 ED Course: 13:05 Patient arrived in ED. ds1 14:25 Triage completed. vg1 14:25 Arm band placed on. vg1 14:47 Initial lab(s) drawn, by ED staff, sent to lab. Inserted saline lock: 20 gauge in right vg1 antecubital area, using aseptic technique. Blood collected. 16:07 Kiley Figueroa, CHRISTINA is Primary Nurse. iw 16:09 Burton Coronel PA is PHCP. cp 16:09 Teja Manriquez MD is Attending Physician. cp 17:00 Patient has correct armband on for positive identification. iw 17:18 US Abdomen Limited In Process Unspecified. EDMS 17:48 CT Abd/Pelvis - IV Contrast Only In Process Unspecified. EDMS 18:52 No provider procedures requiring assistance completed. IV discontinued, intact, iw bleeding controlled, No redness/swelling at site. Pressure dressing applied. Administered Medications: 14:42 CANCELLED (Other Intervention Used): Zofran (Ondansetron) 4 mg PO once vg1 14:47 Drug: Zofran (Ondansetron) 4 mg Route: IVP; Site: right antecubital; vg1 15:10 Follow up: Response: No adverse reaction iw 16:46 Drug: Pepcid (famotidine) 20 mg Route: IVP; Site: right antecubital; iw 17:00 Follow up: Response: No adverse reaction iw 17:45 Drug: NS 0.9% 500 ml Route: IV; Rate: bolus; Site: right antecubital; iw 18:15 Follow up: IV Status: Completed infusion iw Outcome: 18:26 Discharge ordered by . eliseo 18:52 Discharged to home ambulatory. iw 18:52 Condition: good 18:52 Discharge instructions given to patient, Instructed on discharge instructions, follow up and referral plans. Demonstrated understanding of instructions, follow-up care. 18:53 Patient left the ED. iw Signatures: Dispatcher [employer] EDNE Cathleen Garcia ds1 Kiley Figueroa, RN RN iw Burton Coronel PA PA cp Garcia, Victoria RN RN vg1
--- NOTE | 2021-04-25 18:27 | EDPHYS ---
Physician Documentation [facility] Name: Berhane Pardo Age: 65 yrs Sex: Male : 1955 Arrival Date: 04/25/2021 Time: 13:05 Bed 9 Private MD: ED Physician Teja Manriquez HPI: 04/25 16:17 This 65 yrs old Male presents to ER via Ambulatory with complaints of Abdominal Pain. cp 16:17 The patient presents with abdominal pain mid abdomen. Associated signs and symptoms: cp Pertinent positives: nausea, weight loss, decreased appetite. 16:17 Onset: The symptoms/episode began/occurred 2 week(s) ago. cp 16:17 The symptoms do not radiate. cp 16:17 Patient reports weight loss of approximate 13 lbs over past 2 weeks. Denies blood cp and/or dark colored stools. Patient denies diarrhea or constipation. Historical: - Allergies: 14:25 No Known Allergies; vg1 - Home Meds: 14:25 Aspirin Oral [Active]; atorvastatin oral [Active]; vg1 - PMHx: 14:25 Hypertension; Hyperlipidemia; Gout; vg1 - Immunization history:: Client reports having NOT received the Covid vaccine. - Social history:: Smoking status: Patient denies any tobacco usage or history of. ROS: 16:20 Constitutional: Positive for weight loss, Negative for body aches, chills, fever. cp 16:20 Eyes: Negative for injury, pain, redness, and discharge. cp 16:20 ENT: Negative for drainage from ear(s), ear pain, sore throat, difficulty swallowing, difficulty handling secretions. 16:20 Cardiovascular: Negative for chest pain. 16:20 Respiratory: Negative for cough, shortness of breath, wheezing. 16:20 Abdomen/GI: Positive for abdominal pain, nausea, decreased appetite, Negative for diarrhea, constipation, black/tarry stool, rectal bleeding. 16:20 Back: Negative for radiated pain. 16:20 : Negative for urinary symptoms. 16:20 Neuro: Negative for altered mental status, dizziness, headache, weakness. 16:20 All other systems are negative. Exam: 16:25 Constitutional: The patient appears in no acute distress, alert, awake, cp non-diaphoretic, non-toxic, well developed, well nourished. 16:25 Head/Face: Normocephalic, atraumatic. cp 16:25 Eyes: Periorbital structures: appear normal, Conjunctiva: normal, no exudate, no injection, Sclera: no appreciated abnormality, Lids and lashes: appear normal, bilaterally. 16:25 ENT: External ear(s): are unremarkable, Ear canal(s): are normal, clear, TM's: dullness, bilaterally, Nose: is normal, Mouth: Lips: moist, Oral mucosa: moist, Posterior pharynx: Airway: no evidence of obstruction, patent. 16:25 Chest/axilla: Inspection: normal. 16:25 Cardiovascular: Rate: normal, Rhythm: regular, Edema: is not appreciated, JVD: is not appreciated. 16:25 Respiratory: the patient does not display signs of respiratory distress, Respirations: normal, no use of accessory muscles, no retractions, labored breathing, is not present, Breath sounds: are clear throughout, no decreased breath sounds, no stridor, no wheezing. 16:25 Abdomen/GI: Inspection: abdomen appears normal, Bowel sounds: active, all quadrants, Palpation: soft, in all quadrants, mild abdominal tenderness, in the epigastric area, right upper quadrant and left upper quadrant, rebound tenderness, is not appreciated, voluntary guarding, is not appreciated, involuntary guarding, is not appreciated. 16:25 Back: pain, is absent, ROM is normal. 16:25 Neuro: Orientation: to person, place \T\ time. Mentation: is normal. Vital Signs: 14:21 BP 134 / 97; Pulse 85; Resp 18; Temp 97.6; Pulse Ox 97% ; Weight 83.91 kg; Height 5 ft. vg1 5 in. (165.10 cm); Pain 3/10; 14:21 Body Mass Index 30.79 (83.91 kg, 165.10 cm) vg1 MDM: 16:16 Patient medically screened. cp 16:30 Differential diagnosis: cholecystitis, Cholelithiasis, diverticulitis, Hepatitis, cp pancreatitis, Peptic Ulcer Disease, Perf. Duodenal Ulcer, Perf. Gastric Ulcer. 18:25 Data reviewed: vital signs, nurses notes, lab test result(s), radiologic studies, CT cp scan, ultrasound. 18:25 Counseling: I had a detailed discussion with the patient and/or guardian regarding: the cp historical points, exam findings, and any diagnostic results supporting the discharge/admit diagnosis, lab results, radiology results, the need for outpatient follow up, a family practitioner, a lawn specialist, to return to the emergency department if symptoms worsen or persist or if there are any questions or concerns that arise at home. Response to treatment: the patient's symptoms have mildly improved after treatment, VSS. Labs and radiology studies reviewed. Will discharge to home for continued monitoring. 04/25 14:33 Order name: Basic Metabolic Panel; Complete Time: 15:56 1 04/25 15:56 Interpretation: Normal except: GLUC 117; BUN 22; GFR 80. 04/25 14:33 Order name: CBC with Diff; Complete Time: 15:56 1 04/25 15:56 Interpretation: Normal except: MPV 7.4; BRIANNA% 75.6; LYM% 14.1. 04/25 14:33 Order name: Hepatic Function; Complete Time: 15:56 1 04/25 16:20 Interpretation: Normal except: AST 83; ALT 96; BILIT 1.2; BILID 0.4; GLOB 4.5; A/G 0.8. 04/25 14:33 Order name: Lipase; Complete Time: 15:56 1 04/25 16:17 Order name: CT Abd/Pelvis - IV Contrast Only; Complete Time: 18:16 04/25 16:28 Order name: US Abdomen Limited; Complete Time: 18:16 04/25 18:19 Interpretation: Report reviewed. 04/25 14:33 Order name: IV Saline Lock; Complete Time: 14:42 [facility] 04/25 14:33 Order name: Labs collected and sent; Complete Time: 14:42 vg1 Administered Medications: 14:42 CANCELLED (Other Intervention Used): Zofran (Ondansetron) 4 mg PO once vg1 14:47 Drug: Zofran (Ondansetron) 4 mg Route: IVP; Site: right antecubital; vg1 15:10 Follow up: Response: No adverse reaction iw 16:46 Drug: Pepcid (famotidine) 20 mg Route: IVP; Site: right antecubital; iw 17:00 Follow up: Response: No adverse reaction iw 17:45 Drug: NS 0.9% 500 ml Route: IV; Rate: bolus; Site: right antecubital; iw 18:15 Follow up: IV Status: Completed infusion iw Disposition Summary: 04/25/21 18:26 Discharge Ordered Location: Home cp Problem: new cp Symptoms: have improved cp Condition: Stable cp Diagnosis - Pneumonia due to SARS-associated coronavirus cp - Abnormal results of liver function studies cp - Abdominal pain, unspecified cp Followup: cp - With: Private Physician - When: 1 week - Reason: Recheck today's complaints Discharge Instructions: - Discharge Summary Sheet cp - Abdominal Pain, Adult cp - COVID-19 cp - COVID-19 Frequently Asked Questions cp - 10 Things You Can Do to Manage Your COVID-19 Symptoms at Home - [facility] cp Forms: - Medication Reconciliation Form cp - Thank You Letter cp - Antibiotic Education cp - Prescription Opioid Use cp Prescriptions: - Augmentin 875-125 mg Oral Tablet - take 1 tablet by ORAL route every 12 hours for 10 days; 20 tablet; Refills: 0, cp Product Selection Permitted - Protonix 40 mg Oral Tablet - take 1 tablet by ORAL route once daily; 30 tablet; Refills: 0, Product cp Selection Permitted - Zofran 4 mg Oral Tablet - take 1 tablet by ORAL route every 12 hours As needed; 20 tablet; Refills: 0, cp Product Selection Permitted Signatures: Dispatcher [employer] Kiley Block RN RN iw Burton Coronel PA PA cp Garcia, Victoria RN RN vg1 Corrections: (The following items were deleted from the chart) 14:42 14:42 Zofran (Ondansetron) 4 mg PO once ordered. vg1 vg1
[2021-04-25 19:18] VITALS: BP 134/97; TEMP 97.6; O2SAT 97
== END 2021-04-25 18:53 | disposition home or self-care (01) ==
LOC: ER 12:57
DX: U07.1 COVID-19 (principal); J12.82 Pneumonia due to coronavirus disease 2019; R94.5 Abnormal results of liver function studies; I10 Essential (primary) hypertension
CPT/HCPCS: 85025; 80048; 36415; 80076; 83690; 74177; 76705; 96375; 96374; 99284; Q9967; J7030; J2405

== ENCOUNTER 2021-05-15 15:24 | Emergency (ER) | payer BC ==
--- OUTSIDE RECORDS SUMMARY | 2021-05-15 15:28 | XMS REPORT | Continuity of Care Document ---
:1955 Author Organization [facility] t Address [address] [place] [address] Care Team Providers Name Role Phone ADELFO CERVANTES Primary Care Physician Unavailable LUIS F Attending [...] (BMI 6-04 ity of 30-39.9) 30-39.9) 00:00: [place] 00 [facility] Allergies, Adverse Reactions, Alerts Allergy Allergy Status Severity Reaction(s) Onset Inactive Treating Comm ents Source Name Type Date Date Clinician NO KNOWN Drug Active [facility] ALLERGIE Class [facility]y of [facility] Social History Social Habit Start Date Stop Date Quantity Comments Source Exposure to Yes [facility] SARS-CoV-2 (event) Medica l Branch Tobacco use and 2020-12-13 2020-12-13 Never used [facility] exposure 00:00:00 00:00:00 [facility] Sex Ass[birth year] [facility] 00:00:00 00:00:00 [facility] Smoking Status Start Date Stop Date Source Never smoker [facility] Medications Ordered Filled Start Stop Current Ordering Indication Dosage Frequency Signature Comments Components Source Medication Medication Date Date Medication? Clinician (SIG) Name Name benzonatate 2020-04 Yes [id number] 200mg Take 2 [facility] 100 mg 2-24 capsules [place]two[place] times Branch daily as needed for Cough. bromphenira 2020-04 Yes [id number] 5mL Take 5 mL Univers mine-pseudo 2-24 by mouth 4 it y of ephedrine-D 00:[place] ([place] ([place]OMF[place] 00 times Medical DM) 2-30-10 daily as Bran ch mg/5 mL needed for syrup Congestion /Allergies . azelastine 2020-04 Yes [id number] 1{spray Use 1 Univers 137 mcg 2-24 } [place] in ity of (0.1 %) 00:00: each [place] nasal spray 00 nostril 2 Med ical (two) Branch times daily. Use in each nostril as directed fluticasone 2020-04 Yes [id number] 1{spray Use 1 Univers propionate 2-24 } [place] in ity o f 50 00:00: each [place] mcg/actuati 00 nostril Medic al on nasal daily. Branch spray cetirizine 2020-04 Yes [id number] 10mg Take 1 Univers (ZYRTEC) 10 2-24 tablet by ity of mg tablet 00:00: mouth [place] 00 daily. Medical Branch benzonatate 2020-04 Yes [id number] 200mg Take 2 [facility] 100 mg 2-24 capsules [place] of capsule 00:00: [place] (two) Medical times Branch daily as needed for Cough. bromphenira 2020-04 Yes [id number] 5mL Take 5 mL Univers mine-pseudo 2-24 by mouth 4 it y of ephedrine-D 00:00: (four[place] ([place] 00 times Medical DM) 2-30-10 daily as Bran ch mg/5 mL needed for syrup Congestion /Allergies . azelastine 2020-04 Yes [id number] 1{spray Use 1 Univers 137 mcg 2-24 } [place] in ity of (0.1 %) 00:00: each [place] nasal spray 00 nostril 2 Med ical (two) Branch times daily. Use in each nostril as directed fluticasone 2020-04 Yes [id number] 1{spray Use 1 Univers propionate 2-24 } [place] in ity o f 50 00:00: each [place] mcg/actuati 00 nostril Medic al on nasal daily. Branch spray cetirizine 2020-04 Yes [id number] 10mg Take 1 Univers (ZYRTEC) 10 2-24 tablet by ity of mg tablet 00:00: mouth [place] 00 daily. Medical Branch benzonatate 2020-04 Yes [id number] 200mg Take 2 Univers 100 mg 2-24 capsules it[place] of capsule 00:00: [place] (two) Medical times Branch daily as needed for Cough. bromphenira 2020-04 Yes [id number] 5mL Take 5 mL Univers mine-pseudo 2-24 by mouth 4 it y of ephedrine-D 00:00: (four[place] (BROMF[place] 00 times Medical DM) 2-30-10 daily as Bran ch mg/5 mL needed for syrup Congestion /Allergies . azelastine 2020-04 Yes [id number] 1{spray Use 1 Univers 137 mcg 2-24 } [place] in ity of (0.1 %) 00:00: each [place] nasal spray 00 nostril 2 Med ical (two) Branch times daily. Use in each nostril as directed fluticasone 2020-04 Yes [id number] 1{spray Use 1 Univers propionate 2-24 } [place] in ity o f 50 00:00: each [place] mcg/actuati 00 nostril Medic al on nasal daily. Branch spray cetirizine 2020-04 Yes [id number] 10mg Take 1 Univers (ZYRTEC) 10 2-24 tablet by ity of mg tablet 00:00: mouth [place] 00 daily. Medical Branch mupirocin 2 2020-0 Yes [id number] Apply to Univers % ointment 4-13 area(s) 3 ity of 00:00: (three) [place] 00 times Medical daily. Branch mupirocin 2 2020-0 Yes [id number] Apply to Univers % ointment 4-13 area(s) 3 ity of 00:00: (three) [place] 00 times Medical daily. Branch mupirocin 2 2019-0 Yes [id number] Apply to Univers % ointment 4-13 area(s) [...] Procedure Date / Time Performed Performing Clinician [facility] e ASSIGNMENT OF BENEFITS 2021-04-15 22:34:31 Doctor Unassigned, No [facility] Name Medical Branch Encounters Start End Encounter Admission Attending Care Care Encounter Source Date/Time Date/Time Type Type Clinicians Facility Department ID 2021-04-15 2021-04-15 [facility] [id number] Univers 17:00:00 17:00:00 JEROD [id number] ity [facility] 2021-04-15 2021-04-15 Urgent Provider, [facility] [id number] Univers 17:00:00 17:00:00 Care Jerod Patterson [facility] [id number] ity of [place] [id number] Reji as ALEXANDRO?BLEA [phone] [address] MEDICAL OFFICE BUILDING 2021-04-15 2021-04-15 Outpatient R [facility] [id number] Univers 17:00:00 16:55:23 [facility] 2021-04-15 2021-04-15 Orders Doctor SANDERS [id number] Univers 00:00:00 00:00:00 Only Unassigned, DEVORA [id number] ity of [place] [facility] [id number] Reji as [id number] [address] 2021-04-12 2021-04-12 Outpatient R [facility] [id number] Univers 14:00:00 14:10:43 [facility] [place] [facility] 2021-04-12 2021-04-12 [facility] [id number] Univers 00:00:00 00:00:00 [facility] [id number] it y of [place] [id number] Reji as ALEXANDRO?BLEA [phone] [address] MEDICAL OFFICE BUILDING Results This patient has no known results.
--- NOTE | 2021-05-15 16:00 | ER ---
Nurse's Notes [facility] Name: Berhane Prado Age: 65 yrs Sex: Male : 1955 Arrival Date: 05/15/2021 Time: 15:29 Bed 11 Private MD: Gustavo Wilson T Diagnosis: Rash and other nonspecific skin eruption Presentation: 05/15 15:32 Chief complaint: Patient states: "I am having a very uncomfortable rash her on my right jd3 hand and on my lower stomach and grown. I have recently been on a new cholesterol and antibiotic medication, but i have been taken those since the beginning of April so I don't know if that is the cause. X 4 days.". Coronavirus screen: At this time, the client does not indicate any symptoms associated with coronavirus-19. Ebola Screen: No symptoms or risks identified at this time. Initial Sepsis Screen: Does the patient meet any 2 criteria? No. Patient's initial sepsis screen is negative. Does the patient have a suspected source of infection? No. Patient's initial sepsis screen is negative. Risk Assessment: Do you want to hurt yourself or someone else? Patient reports no desire to harm self or others. Onset of symptoms was May 11, 2021. 15:32 Method Of Arrival: Ambulatory jd3 15:32 Acuity: JOHN 4 jd3 Historical: - Allergies: 15:36 No Known Allergies; jd3 - Home Meds: 15:36 Aspirin Oral [Active]; atorvastatin oral [Active]; jd3 - PMHx: 15:36 Gout; Hyperlipidemia; Hypertension; jd3 - Immunization history:: Client reports having NOT received the Covid vaccine. Flu vaccine is not up to date. - Social history:: Smoking status: Patient denies any tobacco usage or history of. Vital Signs: 15:37 BP 155 / 98; Pulse 100; Resp 18 S; Temp 98.4(TE); Pulse Ox 98% on R/A; Weight 80.29 kg jd3 (R); Height 5 ft. 5 in. (165.10 cm) (R); Pain 5/10; 15:37 Body Mass Index 29.45 (80.29 kg, 165.10 cm) jd3 ED Course: 15:29 Patient arrived in ED. am2 15:29 Gustavo Wilson MD is Private Physician. am2 15:[address] [facility] 15:37 Zach Dick PA is PHCP. [facility] 15:37 Teja Manriquez MD is Attending Physician. [facility] 15:37 Arm band placed on. jd3 15:39 Garzyna Mensah, RN is Primary Nurse. [facility] 15:56 Gustavo Wilson MD is Referral Physician. [facility] Administered Medications: 16:15 Drug: Decadron (dexamethasone) 10 mg Route: IM; Site: right deltoid; [facility] Outcome: 15:59 Discharge ordered by . [facility] 16:27 Patient left the ED. [facility] Signatures: Zach Dick PA PA [facility] Kathryn Onofre am2 Michael Shankar RN RN [facility] Grazyna Mensah, CHRISTINA RN 5 Corrections: (The following items were deleted from the chart) 15:35 15:32 Chief complaint: Patient states: "I am having a very uncomfortable rash her on my jd3 right hand and on my lower stomach and grown. I have recently been on a new cholesterol and antibiotic medication, but i have been taken those since the beginning of April so I don't know if that is the cause." [facility] 15:35 15:32 Onset of symptoms was May 15, 2021 [place] [id number]
--- NOTE | 2021-05-15 16:00 | EDPHYS ---
Physician Documentation [facility] Name: Berhane Prado Age: 65 yrs Sex: Male : 1955 Arrival Date: 05/15/2021 Time: 15:29 Bed 11 Private MD: Gustavo Wilson T ED Physician Teja Manriquez HPI: 05/15 15:46 This 65 yrs old Male presents to ER via Ambulatory with complaints of Rash. [facility] 15:46 The patient's rash thought to be caused by an unknown cause. The rash is located on the [facility] abdomen and pelvis. Onset: The symptoms/episode began/occurred gradually, 4 day(s) ago. Associated signs and symptoms: Pertinent positives: itching, Pertinent negatives: difficulty breathing, fever, nausea, Pain swelling of lips, swelling of throat, swelling of tongue, vomiting, wheezing. The patient has not experienced similar symptoms in the past. Patient states recently finishing a course of Augmentin. Is currently on a cholesterol medication and aspirin otherwise. Patient denies fever or pain. Patient states that in the evening symptoms are worse with itching.. Historical: - Allergies: 15:36 No Known Allergies; jd3 - Home Meds: 15:36 Aspirin Oral [Active]; atorvastatin oral [Active]; jd3 - PMHx: 15:36 Gout; Hyperlipidemia; Hypertension; jd3 - Immunization history:: Client reports having NOT received the Covid vaccine. Flu vaccine is not up to date. - Social history:: Smoking status: Patient denies any tobacco usage or history of. ROS: 15:46 Constitutional: Negative for fever, chills, and weight loss, Cardiovascular: Negative [facility] for chest pain, palpitations, and edema, Respiratory: Negative for shortness of breath, cough, wheezing, and pleuritic chest pain, Abdomen/GI: Negative for abdominal pain, nausea, vomiting, diarrhea, and constipation. 15:46 Skin: Positive for erythema. 15:46 All other systems are negative. Exam: 15:46 Constitutional: This is a well developed, well nourished patient who is awake, alert, jmm and in no acute distress. Head/Face: atraumatic. Eyes: EOMI, no conjunctival erythema appreciated ENT: Moist Mucus Membranes Neck: Trachea midline, Supple Chest/axilla: Normal chest wall appearance and motion. Cardiovascular: Regular rate and rhythm. No edema appreciated Respiratory: Normal respirations, no respiratory distress appreciated Abdomen/GI: Non distended, soft Back: Normal ROM 15:46 Skin: on the abdomen, pelvis, right leg and left leg. 15:46 Skin: rash is blanchable. Non tender to palpation. 15:46 Neuro: Orientation: is normal, Mentation: is normal, Memory: is normal. 15:46 Psych: Behavior/mood is pleasant, cooperative. Vital Signs: 15:37 BP 155 / 98; Pulse 100; Resp 18 S; Temp 98.4(TE); Pulse Ox 98% on R/A; Weight 80.29 kg jd3 (R); Height 5 ft. 5 in. (165.10 cm) (R); Pain 5/10; 15:37 Body Mass Index 29.45 (80.29 kg, 165.10 cm) jd3 MDM: 15:46 Patient medically screened. [facility] 15:56 Data reviewed: vital signs, nurses notes. Counseling: I had a detailed discussion with [facility] the patient and/or guardian regarding: the historical points, exam findings, and any diagnostic results supporting the discharge/admit diagnosis, the need for outpatient follow up, to return to the emergency department if symptoms worsen or persist or if there are any questions or concerns that arise at home. 15:56 ED course: Patient is alert nontoxic in appearance in the ED. Rash is pruritic, jmm nontender to palpation, no induration is appreciated. I do not suspect cellulitis or petechiae/purpura. Patient will be put on a course of steroids and is otherwise given strict return precautions. Patient understood and agrees plan of care.. 05/15 16:03 Order name: Glucose, Ancillary Testing; Complete Time: 16:04 EDMS 05/15 15:47 Order name: Fingerstick Glucose; Complete Time: 15:53 [facility] Administered Medications: 16:15 Drug: Decadron (dexamethasone) 10 mg Route: IM; Site: right deltoid; jh5 Disposition: 18:41 Co-signature as Attending Physician, Teja Manriquez MD. ma2 Disposition Summary: 05/15/21 15:59 Discharge Ordered Location: Home [facility] Condition: Stable jmm Diagnosis - Rash and other nonspecific skin eruption jmm Followup: jmm - With: Gustavo Wilson MD - When: 2 - 3 days - Reason: Recheck today's complaints, Continuance of care, Re-evaluation by your physician Discharge Instructions: - Discharge Summary Sheet jm - Rash, Adult [facility] Forms: - Medication Reconciliation Form [facility] - Thank You Letter joanna - Antibiotic Education joanna - Prescription Opioid Use [facility] Prescriptions: - Hydroxyzine HCl 25 mg Oral Tablet - take 1 tablet by ORAL route every 6 hours As needed; 30 tablet; Refills: 0, [facility] Product Selection Permitted - Prednisone 20 mg Oral Tablet - take 3 tablets by ORAL route once daily for 5 days; 15 tablet; Refills: 0, [facility] Product Selection Permitted Signatures: Dispatcher [employer] EDZach Chávez PA PA jmm Davies, Jonathon RN RN jd3 Teja Manriquez MD MD ma2 Grazyna Mensah RN RN jh5
[2021-05-15] MEDS ORDERED: dexAMETHasone 10 MG/ML VIAL ONE (16:15)
[2021-05-15 16:42] VITALS: BP 155/98; TEMP 98.4; O2SAT 98
== END 2021-05-15 16:27 | disposition home or self-care (01) ==
LOC: ER 15:24
DX: R21 Rash and other nonspecific skin eruption (principal)
CPT/HCPCS: 82947; J1100; 96372; 99282

== ENCOUNTER 2021-07-09 18:47 | Emergency (ER) | payer BC ==
--- OUTSIDE RECORDS SUMMARY | 2021-07-09 18:50 | XMS REPORT | Continuity of Care Document ---
:1955 Author Organization Formerly [facility] t Address [address] [place] [address] Care Team Providers Name Role Phone ADELFO [...] (BMI 6-04 ity of 30-39.9) 30-39.9) 00:00: [place] 00 [facility] Allergies, Adverse Reactions, Alerts Allergy Allergy Status Severity Reaction(s) Onset Inactive Treating Comm ents Source Name Type Date Date Clinician NO KNOWN Drug Active Univers ALLERGIE Class ity of S [facility] Social History Social Habit Start Date Stop Date Quantity Comments Source Exposure to Yes [facility] SARS-CoV-2 (event) Medica l Branch Tobacco use and 2020-12-13 2020-12-13 Never used [facility] exposure 00:00:00 00:00:00 [facility] Sex Ass[birth year] [facility] 00:00:00 00:00:00 [facility] Smoking Status Start Date Stop Date Source Never smoker [facility] Medications Ordered Filled Start Stop Current Ordering Indication Dosage Frequency Signature Comments Components Source Medication Medication Date Date Medication? Clinician (SIG) Name Name benzonatate 2020-04 Yes [id number] 200mg Take 2 Univers 100 mg 2-24 capsules [place] of capsule 00:00[place] (two[place] Medical times Branch daily as needed for Cough. bromphenira 2020-04 Yes [id number] 5mL Take 5 mL Univers mine-pseudo 2-24 by mouth 4 it y of ephedrine-D 00:00[place] ([place] (BROMF[place] 00 times Medical DM) 2-30-10 daily as Bran ch mg/5 mL needed for syrup Congestion /Allergies . azelastine 2020-04 Yes [id number] 1{spray Use 1 Univers 137 mcg 2-24 } Devol in ity of (0.1 %) 00:00: each [place] nasal spray 00 nostril 2 Med ical (two) Branch times daily. Use in each nostril as directed fluticasone 2020-04 Yes [id number] 1{spray Use 1 Univers propionate 2-24 } [place] in ity o f 50 00:00: each [place] mcg/actuati 00 nostril Medic al on nasal daily. Branch spray cetirizine 2020-04 Yes [id number] 10mg Take 1 Univers (ZYRTEC) 10 2-24 tablet by ity of mg tablet 00:00: mouth [place] 00 daily. Medical Branch benzonatate 2020-04 Yes [id number] 200mg Take 2 Univers 100 mg 2-24 capsules ity of capsule 00:00[place] (two) Medical times Branch daily as needed for Cough. bromphenira 2020-04 Yes [id number] 5mL Take 5 mL Univers mine-pseudo 2-24 by mouth 4 it y of ephedrine-D 00:00: (four[place] (BROMF[place] 00 times Medical DM) 2-30-10 daily as Bran ch mg/5 mL needed for syrup Congestion /Allergies . azelastine 2020-04 Yes [id number] 1{spray Use 1 Univers 137 mcg 2-24 } [place] in ity of (0.1 %) 00:00: each [place] nasal spray 00 nostril 2 Med ical (two) Branch times daily. Use in each nostril as directed fluticasone 2020-04 Yes [id number] 1{spray Use 1 Univers propionate 2-24 } [place] in ity o f 50 00:00: each [place] mcg/actuati 00 nostril Medic al on nasal daily. Branch spray cetirizine 2020-04 Yes [id number] 10mg Take 1 Univers (ZYRTEC) 10 2-24 tablet by ity of mg tablet 00:00: mouth [place] 00 daily. Medical Branch benzonatate 2020-04 Yes [id number] 200mg Take 2 Univers 100 mg 2-24 capsules ity of capsule 00:00: [place] (two) Medical times Branch daily as needed for Cough. bromphenira 2020-04 Yes [id number] 5mL Take 5 mL Univers mine-pseudo 2-24 by mouth 4 it y of ephedrine-D 00:00: (four[place] (BROMF[place] 00 times Medical DM) 2-30-10 daily as Bran ch mg/5 mL needed for syrup Congestion /Allergies . azelastine 2020-04 Yes [id number] 1{spray Use 1 Univers 137 mcg 2-24 } [place] in ity of (0.1 %) 00:00: each [place] nasal spray 00 nostril 2 Med ical (two) Branch times daily. Use in each nostril as directed fluticasone 2020-04 Yes [id number] 1{spray Use 1 Univers propionate 2-24 } Devol in ity o f 50 00:00: each [place] mcg/actuati 00 nostril Medic al on nasal daily. Branch spray cetirizine 2020-04 Yes [id number] 10mg Take 1 Univers (ZYRTEC) 10 2-24 tablet by ity of mg tablet 00:00: mouth [place] 00 daily. Medical Branch mupirocin 2 2020-0 Yes [id number] Apply to Univers % ointment 4-13 area(s) 3 ity of 00:00: (three) [place] 00 times Medical daily. Branch mupirocin 2 2020-0 Yes [id number] Apply to Univers % ointment 4-13 area(s) 3 ity of 00:00: (three) [place] 00 times Medical daily. Branch mupirocin 2 2020-0 Yes [id number] Apply to Univers % ointment 4-13 area(s) [...] Procedure Date / Time Performed Performing Clinician [facility] e ASSIGNMENT OF BENEFITS 2021-04-15 22:34:31 Doctor Unassigned, No [facility] Name Medical Branch Encounters Start End Encounter Admission Attending Care Care Encounter Source Date/Time Date/Time Type Type Clinicians Facility Department ID 2021-04-15 2021-04-15 Outpatient R [facility] [id number] Univers 17:00:00 17:00:00 JEROD [id number] ity [facility] 2021-04-15 2021-04-15 Urgent Provider, [facility] [id number] Univers 17:00:00 17:00:00 Care Jerod Patterson [facility] [id number] ity of [place] [id number] Reji as ALEXANDRO?BLEA [phone] [address] MEDICAL OFFICE BUILDING 2021-04-15 2021-04-15 Outpatient R [facility] [id number] Univers 17:00:00 16:55:23 JEROD [facility] 2021-04-15 2021-04-15 Orders Doctor TOMMY [id number] Univers 00:00:00 00:00:00 Only Unassigned, DEVORA [id number] ity of [place] [facility] [id number] Reji as [id number] [address] 2021-04-12 2021-04-12 Outpatient R [facility] [id number] Univers 14:00:00 14:10:43 JEROD [facility] 2021-04-12 2021-04-12 [facility] [id number] Univers 00:00:00 00:00:00 Jerod [facility] [id number] it y of [place] [id number] Reji as ALEXANDRO?BLEA [phone] [address] MEDICAL OFFICE BUILDING Results This patient has no known results.
[2021-07-09] MEDS ORDERED: CEFTRIAXONE 1000 MG/VIAL ONE (19:44)
[2021-07-09] MEDS ORDERED: NA CHLORIDE 0.9% 1,000 ML ONE (19:44)
[2021-07-09] MEDS ORDERED: AZITHROMYCIN 250 MG TAB ONE (20:06)
[2021-07-09 20:10] LABS: Absolute Lymphocytes (CBC) 0.7 K/uL (0.7-4.9); Hematocrit 40.8 % (39.6-49.0); Lymphocytes % 12.8 % (15.3-44.8); MPV 7.3 fL (7.6-11.3)
--- NOTE | 2021-07-09 20:46 | RAD REPORT ---
EXAM DESCRIPTION: Maisha Alejandro And Lat (2 Views)07/09/2021 8:29 pm CLINICAL HISTORY: Cough COMPARISON: April 2021 FINDINGS Mild left basilar infiltrate Right lung appears clear. The heart is normal size IMPRESSION: Mild left basilar infiltrate probably mild pneumonia
[2021-07-09 20:48] LABS: SARS-COV-2 RT PCR NEGATIVE (NEGATIVE)
[2021-07-09 20:52] LABS: Albumin 3.6 g/dL (3.4-5.0); Potassium 4.1 mmol/L (3.5-5.1); Protein, Total 7.3 g/dL (6.4-8.2)
--- NOTE | 2021-07-09 21:25 | ER ---
Nurse's Notes [facility] Name: Berhane Prado Age: 66 yrs Sex: Male : 1955 Arrival Date: 07/09/2021 Time: 18:49 Bed 26 Private MD: Diagnosis: Fever, unspecified;Acute upper respiratory infection, unspecified;Other malaise and fatigue;Other pneumonia, unspecified organism-left base;Hypoxemia;Influenza due to identified novel influenza A virus Presentation: 07/09 18:53 Chief complaint: Patient states: pt presented to Ed reporting cough congestion,sore johnson throat and fatigue x1 week. Coronavirus screen: Vaccine status: Patient reports being unvaccinated. Ebola Screen: Patient denies travel to an Ebola-affected area in the 21 days before illness onset. Initial Sepsis Screen: Does the patient meet any 2 criteria? RR > 20 per min. HR > 90 bpm. Does the patient have a suspected source of infection? No. Patient's initial sepsis screen is negative. Risk Assessment: Do you want to hurt yourself or someone else? Patient reports no desire to harm self or others. Onset of symptoms was July 01, 2021. 18:53 Method Of Arrival: Ambulatory johnson 18:53 Acuity: JOHN 3 johnson Triage Assessment: 18:54 General: Appears in no apparent distress. Behavior is calm, cooperative. Pain: johnson Complains of pain in generalize pain. Respiratory: Historical: - Allergies: 18:54 No Known Allergies; johnson - Home Meds: 18:54 aspirin 81 mg oral tab [Active]; atorvastatin 20 mg oral tab [Active]; johnson - PMHx: 18:54 Gout; Hyperlipidemia; Hypertension; johnson - PSHx: 18:54 None; johnson - Immunization history:: Adult Immunizations up to date. - Social history:: Smoking status: Patient denies any tobacco usage or history of. Screenin:07 Abuse screen: Denies threats or abuse. Denies injuries from another. Nutritional ab2 screening: No deficits noted. Tuberculosis screening: No symptoms or risk factors identified. Fall Risk None identified. Assessment: 19:05 General: Appears in no apparent distress. comfortable. Pain: Denies pain. Neuro: Level ab2 of Consciousness is awake, alert, obeys commands, Oriented to person, place, situation, Power Nut Runner Operator are equal bilaterally Moves all extremities. Gait is steady, Speech is normal. Cardiovascular: Denies chest pain, Heart tones S1 S2 present Patient's skin is warm and dry. Respiratory: Reports cough that is dry, Airway is patent Respiratory effort is even, unlabored, Respiratory pattern is regular, symmetrical. Respiratory: Breath sounds are clear bilaterally. GI: No deficits noted. No signs and/or symptoms were reported involving the gastrointestinal system. : No deficits noted. No signs and/or symptoms were reported regarding the genitourinary system. EENT: No deficits noted. No signs and/or symptoms were reported regarding the EENT system. Derm: No deficits noted. No signs and/or symptoms reported regarding the dermatologic system. Musculoskeletal: Reports weakness in whole body. Vital Signs: 18:53 BP 145 / 90; Pulse 101; Resp 20; Temp 98.8; Pulse Ox 92% on R/A; Weight 83.01 kg; johnson Height 5 ft. 5 in. (165.10 cm); 20:08 BP 143 / 100; Pulse 89; Resp 20; Pulse Ox 89% on R/A; ss7 21:00 BP 137 / 90; Pulse 85; Resp 18; Pulse Ox 94% on R/A; ss7 22:06 BP 153 / 93; Pulse 55; Resp 18; Pulse Ox 95% on R/A; ss7 18:53 Body Mass Index 30.45 (83.01 kg, 165.10 cm) johnson ED Course: 18:49 Patient arrived in ED. as 18:54 Triage completed. johnson 19:07 Arm band placed on right wrist. ab2 19:07 Patient has correct armband on for positive identification. Bed in low position. Call ab2 light in reach. Side rails up X2. 19:07 No provider procedures requiring assistance completed. ab2 19:12 Burton Blake MD is Attending Physician. [facility] 19:21 Lolis Ochoa, CHRISTINA is Primary Nurse. ss7 20:06 COVID-19/FLU A+B (Document "Date of Onset" if Symptomatic) Sent. ss7 20:06 Strep Sent. ss7 20:06 D-Dimer Sent. ss7 20:06 Troponin High Sensitivity Sent. ss7 20:06 Comprehensive Metabolic Panel Sent. ss7 20:07 CBC with Diff Sent. ss7 20:07 Inserted saline lock: 20 gauge in right antecubital area, using aseptic technique. ss7 20:29 Chest Pa And Lat (2 Views) XRAY In Process Unspecified. EDMS 21:22 Throat Culture Sent. ss7 22:41 IV discontinued, intact. ss7 Administered Medications: 20:07 Drug: NS 0.9% 1000 ml Route: IV; Rate: 1 bolus; Site: right antecubital; ss7 21:00 Follow up: IV Status: Completed infusion ss7 20:07 Drug: Rocephin (cefTRIAXone) 1 grams Route: IV; Rate: per protocol; Site: right ss7 antecubital; 20:07 Drug: Zithromax (azithromycin) 500 mg Route: PO; ss7 21:22 Drug: Tamiflu (oseltamivir) 75 mg Route: PO; ss7 22:41 Follow up: Response: No adverse reaction ss7 22:11 Drug: predniSONE 60 mg Route: PO; ss7 22:41 Follow up: Response: No adverse reaction ss7 22:11 Drug: Xopenex (levalbuterol) 2.5 mg Route: Inhalation; ss7 22:11 Drug: AtroVENT (ipratropium) Aerosol 0.5 mg Route: Inhalation; ss7 Outcome: 21:24 Discharge ordered by MD. kelley 22:38 [facility] 22:38 Discharged to home ambulatory, with family. 22:38 Condition: good 22:38 Discharge instructions given to patient, family, Instructed on discharge instructions, follow up and referral plans. Demonstrated understanding of instructions, follow-up care, medications, Prescriptions given X 4. 22:42 Patient left the ED. ss7 Signatures: Dispatcher [employer] Burton Barr MD MD cha Martinez, Amelia as Au-Odalis Parra, RN Kevyn Cain Shana, RN RN ss7
--- NOTE | 2021-07-09 21:25 | EDPHYS ---
Physician Documentation [facility] Name: Berhane Prado Age: 66 yrs Sex: Male : 1955 Arrival Date: 07/09/2021 Time: 18:49 Bed 26 Private MD: ED Physician Burton Blake HPI: 07/09 19:38 This 66 yrs old Male presents to ER via Ambulatory with complaints of warren Congestion, Cough, Sore Throat. 19:38 The patient or guardian reports cough, that is intermittent, flu symptoms, arthralgias, warren low-grade fever, myalgias. Onset: The symptoms/episode began/occurred 5 day(s) ago. Severity of symptoms: At their worst the symptoms were mild, in the emergency department the symptoms are unchanged. Modifying factors: The symptoms are alleviated by nothing, the symptoms are aggravated by nothing. Associated signs and symptoms: The patient has no apparent associated signs or symptoms. The patient has not experienced similar symptoms in the past. Historical: - Allergies: 18:54 No Known Allergies; johnson - Home Meds: 18:54 aspirin 81 mg oral tab [Active]; atorvastatin 20 mg oral tab [Active]; johnson - PMHx: 18:54 Gout; Hyperlipidemia; Hypertension; johnson - PSHx: 18:54 None; johnson - Immunization history:: Adult Immunizations up to date. - Social history:: Smoking status: Patient denies any tobacco usage or history of. ROS: 19:39 Eyes: Negative for injury, pain, redness, and discharge, Neck: Negative for injury, warren pain, and swelling, Cardiovascular: Negative for chest pain, palpitations, and edema, Abdomen/GI: Negative for abdominal pain, nausea, vomiting, diarrhea, and constipation, Back: Negative for injury and pain, : Negative for injury, bleeding, discharge, and swelling, MS/Extremity: Negative for injury and deformity, Skin: Negative for injury, rash, and discoloration, Neuro: Negative for headache, weakness, numbness, tingling, and seizure, Psych: Negative for depression, anxiety, suicide ideation, homicidal ideation, and hallucinations, Allergy/Immunology: Negative for hives, rash, and allergies, Endocrine: Negative for neck swelling, polydipsia, polyuria, polyphagia, and marked weight changes, Hematologic/Lymphatic: Negative for swollen nodes, abnormal bleeding, and unusual bruising. 19:39 Constitutional: Positive for body aches, fatigue, fever, malaise. 19:39 Respiratory: Positive for cough, with no reported sputum. Exam: 19:39 Constitutional: This is a well developed, well nourished patient who is awake, alert, warren and in no acute distress. Head/Face: Normocephalic, atraumatic. Eyes: Pupils equal round and reactive to light, extra-ocular motions intact. Lids and lashes normal. Conjunctiva and sclera are non-icteric and not injected. Cornea within normal limits. Periorbital areas with no swelling, redness, or edema. ENT: Nares patent. No nasal discharge, no septal abnormalities noted. Tympanic membranes are normal and external auditory canals are clear. Oropharynx with no redness, swelling, or masses, exudates, or evidence of obstruction, uvula midline. Mucous membranes moist. Neck: Trachea midline, no thyromegaly or masses palpated, and no cervical lymphadenopathy. Supple, full range of motion without nuchal rigidity, or vertebral point tenderness. No Meningismus. Chest/axilla: Normal chest wall appearance and motion. Nontender with no deformity. No lesions are appreciated. Abdomen/GI: Soft, non-tender, with normal bowel sounds. No distension or tympany. No guarding or rebound. No evidence of tenderness throughout. Back: No spinal tenderness. No costovertebral tenderness. Full range of motion. Male : Normal genitalia with no discharge or lesions. Skin: Warm, dry with normal turgor. Normal color with no rashes, no lesions, and no evidence of cellulitis. MS/ Extremity: Pulses equal, no cyanosis. Neurovascular intact. Full, normal range of motion. Neuro: Awake and alert, GCS 15, oriented to person, place, time, and situation. Cranial nerves II-XII grossly intact. Motor strength 5/5 in all extremities. Sensory grossly intact. Cerebellar exam normal. Normal gait. Psych: Awake, alert, with orientation to person, place and time. Behavior, mood, and affect are within normal limits. 19:39 Cardiovascular: Rate: tachycardic, actual rate is 101 bpm, Rhythm: regular, Pulses: Pulses are 4+ in bilateral radial, brachial, femoral, popliteal, posterior tibial and and dorsalis pedis arteries.. Heart sounds: normal, Edema: is not appreciated, JVD: is not appreciated. 19:39 Musculoskeletal/extremity: DVT Exam: No signs of deep vein thrombosis. no pain, no swelling, no tenderness, negative Homans' sign noted on exam, no appreciated bluish discoloration, no erythema, no increased warmth. 21:16 ECG was reviewed by the Attending Physician. warren Vital Signs: 18:53 BP 145 / 90; Pulse 101; Resp 20; Temp 98.8; Pulse Ox 92% on R/A; Weight 83.01 kg; johnson Height 5 ft. 5 in. (165.10 cm); 20:08 BP 143 / 100; Pulse 89; Resp 20; Pulse Ox 89% on R/A; ss7 21:00 BP 137 / 90; Pulse 85; Resp 18; Pulse Ox 94% on R/A; ss7 22:06 BP 153 / 93; Pulse 55; Resp 18; Pulse Ox 95% on R/A; ss7 18:53 Body Mass Index 30.45 (83.01 kg, 165.10 cm) johnson MDM: 19:12 Patient medically screened. warren 19:41 Differential Diagnosis: Bronchitis Influenza Upper Respiratory Infection Sinusitis warren Pharyngitis Viral Syndrome Pneumonia. Data reviewed: vital signs, nurses notes, lab test result(s), EKG, radiologic studies, plain films. Data interpreted: lunchroom monitor: rate is 101 beats/min, rhythm is regular, Pulse oximetry: on room air is 92 %. Test interpretation: by ED physician or midlevel provider: ECG, plain radiologic studies. Counseling: I had a detailed discussion with the patient and/or guardian regarding: the historical points, exam findings, and any diagnostic results supporting the discharge/admit diagnosis, lab results, radiology results, the need for outpatient follow up, for definitive care, a family practitioner. 07/09 19:38 Order name: COVID-19/FLU A+B (Document "Date of Onset" if Symptomatic); Complete Time: warren 21:07/09 19:38 Order name: Strep; Complete [facility]: [facility]12 [facility] 07/09 19:38 Order name: D-Dimer; Complete Time: 20:25 [facility] 07/09 19:38 Order name: Troponin High Sensitivity [facility] 07/09 19:38 Order name: CBC with Diff; Complete Time: 20:25 [facility] 03/22 19:38 Order name: Comprehensive Metabolic Panel [facility] 07/09 19:38 Order name: Chest Pa And Lat (2 Views) XRAY; Complete Time: 21:12 [facility] 07/09 20:48 Order name: Throat Culture [facility] 07/09 19:38 Order name: EKG; Complete Time: 19:39 [facility] 07/09 19:38 Order name: EKG - Nurse/Tech; Complete Time: 20:06 [facility] EC:16 Rate is 93 beats/min. Rhythm is regular. QRS [place] is Normal. [place] interval is normal. QRS warren interval is normal. QT interval is normal. No Q waves. T waves are Normal. Clinical impression: Normal ECG and No evidence of ischemia. Interpreted by me. Reviewed by me. Administered Medications: 20:07 Drug: NS 0.9% 1000 ml Route: IV; Rate: 1 bolus; Site: right antecubital; ss7 21:00 Follow up: IV Status: Completed infusion ss7 20:07 Drug: Rocephin (cefTRIAXone) 1 grams Route: IV; Rate: per protocol; Site: right ss7 antecubital; 20:07 Drug: Zithromax (azithromycin) 500 mg Route: PO; ss7 21:22 Drug: Tamiflu (oseltamivir) 75 mg Route: PO; ss7 22:41 Follow up: Response: No adverse reaction ss7 22:11 Drug: predniSONE 60 mg Route: PO; ss7 22:41 Follow up: Response: No adverse reaction ss7 22:11 Drug: Xopenex (levalbuterol) 2.5 mg Route: Inhalation; ss7 22:11 Drug: AtroVENT (ipratropium) Aerosol 0.5 mg Route: Inhalation; ss7 Disposition Summary: 07/09/21 21:24 Discharge Ordered Location: Home warren Problem: new warren Symptoms: have improved warren Condition: Stable warren Diagnosis - Fever, unspecified warren - Acute upper respiratory infection, unspecified warren - Other malaise and fatigue warren - Other pneumonia, unspecified organism - left base warren - Hypoxemia warren - Influenza due to identified novel influenza A virus warren Followup: warren - With: Private Physician - When: 2 - 3 days - Reason: Recheck today's complaints, Continuance of care, Re-evaluation by your physician Discharge Instructions: - Discharge Summary Sheet warren - Fever, Adult warren - Upper Respiratory Infection, Adult warren - Cool Mist Vaporizer warren - Upper Respiratory Infection, Adult, [id number] - Influenza, Adult warren - Cough, Adult, Uxex-lq-Twwt [facility] - Cough, Adult warren - Fever, Adult, Ymsb-jj-Qgis [facility] - Hypoxemia [facility] - Community-Acquired Pneumonia, Adult, Vmbd-mr-Swnu [facility] - Influenza, Adult, Ocds-xj-Covf [facility] Forms: - Medication Reconciliation Form [facility] - Thank You Letter [facility] - Antibiotic Education [facility] - Prescription Opioid Use [facility] Prescriptions: - Medrol (Dominguez) 4 mg Oral Tablets, Dose Pack - take 1 tablet by ORAL route as directed - follow package instructions; 1 [facility] packet; Refills: 0, Product Selection Permitted - Tamiflu 75 mg Oral Capsule - take 1 tablet by ORAL route every 12 hours for 5 days; 10 tablet; Refills: 0, [facility] Product Selection Permitted - Zithromax 500 mg Oral Tablet - take 1 tablet by ORAL route once daily for 5 days; 5 tablet; Refills: 0, [facility] Product Selection Permitted - albuterol sulfate 90 mcg/actuation Inhalation HFA aerosol inhaler - inhale 2 puff by INHALATION route every 4-6 hours; 1 Pump; Refills: 0, Product [id number] Selection Permitted Signatures: Dispatcher [employer] Burton Barr MD MD [facility] Dinora-Odalis Parra, RN Lolis Granda RN RN ss7
[2021-07-09] MEDS ORDERED: OSELTAMIVIR 75 MG CAP ONE (21:27)
[2021-07-09] MEDS ORDERED: LEVALBUTEROL 1.25 MG/3 ML NEB ONE (22:07)
[2021-07-09] MEDS ORDERED: predniSONE 20 MG TAB ONE (22:07)
[2021-07-09] MEDS ORDERED: IPRATROPIUM BROM 0.5MG/2.5ML ONE (22:07)
[2021-07-09 22:31] LABS: Troponin High Sensitivity 7.8 pg/mL (<58.9)
[2021-07-10 00:36] VITALS: TEMP 98.8
[2021-07-10 00:39] VITALS: BP 153/93; O2SAT 95
--- NOTE | 2021-07-11 07:46 | EKG ---
Test Date: 2021-07-09 Test Time: 19:50:05 Nitro Worker: RALPH MEASUREMENT RESULTS: Intervals: Rate: 93 SC: 156 QRSD: 88 QT: 362 QTc: 450 [place]: P: 40 SC: 156 QRS: 3 T: 41 INTERPRETIVE STATEMENTS: Normal sinus rhythm Normal ECG Compared to ECG 06/15/2013 14:36:59 No significant changes Electronically Signed On 07-11-21 07:41:46 CDT by Eusebio Briggs
== END 2021-07-09 22:42 | disposition home or self-care (01) ==
LOC: ER 18:47
DX: J10.08 Influenza due to other identified influenza virus with other specified pneumonia (principal); J18.8 Other pneumonia, unspecified organism; R09.02 Hypoxemia; R53.81 Other malaise; R53.83 Other fatigue; I10 Essential (primary) hypertension; E78.5 Hyperlipidemia, unspecified; Z20.822 Contact with and (suspected) exposure to COVID-19; Z79.82 Long term (current) use of aspirin
CPT/HCPCS: 96361; 93005; 87070; 85025; 36415; 85379; 87081; 84484; 80053; 0240U; 71046; 96374; 99284; J7030; J7512